=== PATIENT | female | born 1980 | race Caucasian/White ===

== ENCOUNTER 2024-11-09 11:17 | Emergency (ER) | payer OTHER ==
[~2024-11-09] VITALS: Ht 165.1 cm; Wt 73.0 kg
--- NOTE | 2024-11-09 11:31 | ED.PDOC ---
HPI Comments 44 year old female presents to the ED with chief complaint of palpitations. Patient reports that she has been experiencing palpitations with associated dizziness since earlier today. Patient relays that she feels like her heart is pounding and that she needs to catch her breath. Patient states she went to [facility], but was advised to come to the ED for further evaluation. Patient notes that she was recently diagnosed with Influenza B on 10/26/24. Patient denies any chest pain, SOB, headache, numbness, weakness, N/V/D, or abdominal pain. 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 AND 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 History Family History Family History: Reviewed,noncontributory to illness Social History Smoker: Non-Smoker Alcohol: Denies ETOH Use Drugs: Denies Drug Use Lives In: Home Constitutional: denies: chills, diaphoresis, fatigue, fever, malaise, sweats, weakness, others EENTM: denies: blurred vision, double vision, ear bleeding, ear discharge, ear drainage, ear pain, ear ringing, eye pain, eye redness, hearing loss, mouth pain, mouth swelling, nasal discharge, nose bleeding, nose congestion, nose pain, photophobia, tearing, throat pain, throat swelling, voice changes, others Respiratory: denies: cough, hemoptysis, orthopnea, SOB at rest, shortness of breath, SOB with excertion, stridor, wheezing, others Cardiovascular: reports: palpitations; denies: chest pain, dizzy spells, diaphoresis, Dyspnea on exertion, edema, irregular heart beat, left arm pain, lightheadedness, PND, syncope, others Gastrointestinal: denies: abdomen distended, abdominal pain, blood streaked bowels, constipated, diarrhea, dysphagia, difficulty swallowing, hematemesis, melena, nausea, poor appetite, poor fluid intake, rectal bleeding, rectal pain, vomiting, others Genitourinary: denies: abnormal vagina bleeding, burning, dyspareunia, dysuria, flank pain, frequency, hematuria, incontinence, pain, , vagina discharge, urgency, others Neurological: reports: dizziness; denies: fainting, headache, left sided numbness, left sided weakness, numbness, paresthesia, pre-existing deficit, right sided numbness, right sided weakness, seizure, speech problems, tingling, tremors, weakness, others Musculoskeletal: denies: back pain, gout, joint pain, joint swelling, muscle pain, muscle stiffness, neck pain, others Integumetry: denies: bruises, change in color, change in hair/nails, dryness, laceration, lesions, lumps, rash, wounds, others Allergic/Immunocompromised: denies: Difficulty Healing, Frequent Infections, Hives, Itching, others Hematologic/Lymphatic: denies: anemia, blood clots, easy bleeding, easy bruising, swollen glands, others Endocrine: denies: excessive hunger, excessive sweating, excessive thirst, excessive urination, flushing, intolerance to cold, intolerance to heat, unexplained weight gain, unexplained weight loss, others Psychiatric: denies: anxiety, bipolar disorder, depression, hopeless, panic disorder, schizophrenia, sleepless, suicidal, others All Other Systems: Reviewed and Negative Physical Exam General Appearance: Moderate Distress, Normal HEENT: Normal ENT Inspection, PERRL/EOMI Neck: Full Range of Motion, Non-Tender, Normal, Normal Inspection Respiratory: Chest Non-Tender, Lungs Clear, No Accessory Muscle Use, No Respiratory Distress, Normal Breath Sounds Cardiovascular: No Edema, No JVD, No Murmur, No Gallop, Normal Peripheral Pulses, Tachycardia Breast Exam: Deferred Gastrointestinal: No Organomegaly, Non Tender, No Pulsatile Mass, Normal Bowel Sounds, Soft Genitalia: Deferred Pelvic: Deferred Rectal: Deferred Extremities: No calf tenderness, Normal capillary refill, Normal inspection, Normal range of motion, Non-tender, No pedal edema Musculoskeletal : Apperance: Normal Neurologic: Alert, senior assistant 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 Was a procedure done?: No CP Differential Dx Differential Diagnosis: A-fib, A-Flutter, Angina, Anxiety / Panic Attack, Atrial Dysrhythmia, Electrolyte Disorder X-Ray, Labs, Meds, VS Vital Signs Date Time Temp Pulse Resp B/P (MAP) Pulse Ox O2 Delivery O2 Flow Rate FiO2 11/09/24 11:24 104 11/09/24 11:17 98.2 118 24 154/79 (104) 99 Lab Test 11/09/24 11:30 Range/Units White Blood Count 14.7 H 4.4-10.8 10^3/uL Red Blood Count 4.24 4.0-5.20 10^6/uL Hemoglobin 14.0 12.2-16.2 g/dL Hematocrit 40.7 36.0-46.0 % Mean Corpuscular Volume 96.2 80.0-100.0 fL Mean Corpuscular Hemoglobin 33.1 H 28.0-32.0 pg Mean Corpuscular Hemoglobin Concent 34.4 32.0-36.0 g/dL Red Cell Distribution Width 13.5 11.8-14.3 % Platelet Count 478 H 140-450 10^3/uL Mean Platelet Volume 6.6 L 6.9-10.8 fL Neutrophils (%) (Auto) 79.8 37.0-80.0 % Lymphocytes (%) (Auto) 17.5 10.0-50.0 % Monocytes (%) (Auto) 2.6 0.0-12.0 % Eosinophils (%) (Auto) 0.0 0.0-7.0 % Basophils (%) (Auto) 0.1 0.0-2.0 % Neutrophils # (Auto) 11.7 H 1.6-8.6 10 ^3/uL Lymphocytes # (Auto) 2.6 0.4-5.4 10 ^3/uL Monocytes # (Auto) 0.4 0-1.3 10 ^3/uL Eosinophils # (Auto) 0 0-0.8 10 ^3/uL Basophils # (Auto) 0 0-0.2 10 ^3/uL Nucleated Red Blood Cells 0.0 % Sodium Level 135 L 136-145 mmol/L Potassium Level 3.4 L 3.5-5.1 mmol/L Chloride Level 103 98-107 mmol/L Carbon Dioxide Level 18 L 20-31 mmol/L Anion Gap 14 5-15 Blood Urea Nitrogen 10 9-23 mg/dL Creatinine 0.69 0.550-1.02 mg/dL Glomerular Filtration Rate Calc 111 >90 mL/min BUN/Creatinine Ratio 14.5 10.0-20.0 Serum Glucose 151 H 74-106 mg/dL Calcium Level 10.0 8.7-10.4 mg/dL Troponin I High Sensitivity Pending Current Medications Medications (Trade) Dose Ordered Sig/Jenni Route Start Time Stop Time Status Last Admin Lorazepam (Ativan Inj) 1 mg ONCE ONCE IV 11/09/24 11:30 11/09/24 11:31 DC 11/09/24 12:03 Sodium Chloride 1,000 ml @ 1,000 mls/hr Q1H ONCE IV 11/09/24 11:30 11/09/24 12:29 11/09/24 11:45 Aspirin 325 mg ONCE ONCE PO 11/09/24 11:30 11/09/24 11:31 DC 11/09/24 11:45 Patient alert. She is shaking. Heart palpitations. Tachycardia. Was given aspirin. Establish intravenous access. Was given fluids. Was given Ativan. EKG reviewed does not show any acute changes. WBC slightly elevated. Hemoglobin within normal limits. Blood sugar slightly elevated. CT of the head reviewed does not show any acute changes. Spoke with [facility] for transfer. Time of 1ST Reevaluation: 12:29 Reevaluation 1ST: Unchanged Patient Education/Counseling: Diagnosis, Treatment Family Education/Counseling: No Family Present Additional Information I reviewed the following notes from patient's past medical encounters: None The following tests were ordered, and results were reviewed by me: CT Head, CBC, BMP, EKG, UA, Troponin Additional Information was gathered from interviewing the following independent historians: None I reviewed and agreed with the following test results read by other providers: CT Head I discussed treatment and results with medical personnel. Departure 1 Departure Time of Disposition: 12:12 Impression: Primary Impression: Autonomic disorder Disposition: 02 SHORT TERM HOSPITAL Admit to: Med Surg Condition: Guarded Critical Care Note Critical Care Time?: Yes (45 min-critical care time only) Stability Stability form required: No Heart Score Heart Score: Heart Score Response (Comments) Value History Moderate Suspicious 1 EKG Normal 0 Age <45 0 Risk Factors No known risk factors 0 Troponin Normal limit 0 Total 1 I personally scribed for ANTONIETTA COREA MD ([email or web address]) on 11/09/24 at 11:31. Electronically submitted by Pedro Luis Burrell ([email or web address]). ANTONIETTA COREA MD Nov 09, 2024 11:31
[2024-11-09] MEDS: ASPirin 325 MG TAB PO ONE (11:45)
[2024-11-09] MEDS: SODIUM CHLORIDE 0.9% 1,000 ML IV ONE (11:45)
[2024-11-09 11:50] LABS: Basophils # (auto) 0 10 ^3/uL (0-0.2); Eosinophils # (auto) 0 10 ^3/uL (0-0.8); Monocytes # (auto) 0.4 10 ^3/uL (0-1.3)
[2024-11-09 11:52] LABS: Basophils % (auto) 0.1 % (0.0-2.0); Hematocrit 40.7 % (36.0-46.0); Lymphocytes # (auto) 2.6 10 ^3/uL (0.4-5.4); Lymphocytes % (auto) 17.5 % (10.0-50.0); Mean Corpuscular Hemoglobin 33.1 pg (28.0-32.0); Mean Corpuscular Hgb Conc. 34.4 g/dL (32.0-36.0); Mean Corpuscular Volume 96.2 fL (80.0-100.0); Monocytes % (auto) 2.6 % (0.0-12.0); Neutrophils # (auto) 11.7 10 ^3/uL (1.6-8.6); Neutrophils % (auto) 79.8 % (37.0-80.0); Platelet Count (auto) 478 10^3/uL (140-450); Red Blood Cells 4.24 10^6/uL (4.0-5.20); Red Cell Distribution Width 13.5 % (11.8-14.3); White Blood Cell 14.7 10^3/uL (4.4-10.8)
[2024-11-09 11:57] LABS: Chloride 103 mmol/L (98-107)
[2024-11-09 11:58] LABS: Anion Gap 14 (5-15)
[2024-11-09 12:03] LABS: BUN/Creatinine Ratio 14.5 (10.0-20.0); Blood Urea Nitrogen 10 mg/dL (9-23)
[2024-11-09] MEDS: LORazepam 2MG/ML-1ML VIAL IV ONE (12:03)
[2024-11-09 12:09] LABS: Carbon Dioxide 18 mmol/L (20-31); Glucose 151 mg/dL (74-106); Potassium 3.4 mmol/L (3.5-5.1); Sodium 135 mmol/L (136-145)
--- NOTE | 2024-11-09 12:19 | DVH ---
EXAM: CT HEAD WITHOUT CONTRAST INDICATION: dizzy TECHNIQUE: CT of the head without intravenous contrast. Radiation Dose Information: CT Dose: CTDI volume is 51.44 mGy. Dose-length product is 911.09 mGy*cm The dose indicators for CT are the volume Computed Tomography (CT) Dose Index (CTDIvol) and the Dose Length Product (DLP), and are measured in units of mGy and mGy-cm, respectively. These indicators are not patient dose, but values generated from the CT scanner acquisition factors. The report includes radiation exposure data for exposures received during this examination. COMPARISON: None FINDINGS: There is no evidence of acute intracranial hemorrhage, extra-axial collection, mass effect, midline s hift, herniation or hydrocephalus. The ventricles, sulci and cisterns are age appropriate. The cassidy-white differentiation is intact. Patchy periventricular and subcortical white matter hypoattenuation is nonspecific but may be related to small vessel ischemic disease. The visualized paranasal sinuses and mastoid air cells are clear. The surrounding soft tissues and osseous structures are unremarkable. IMPRESSION: No acute intracranial abnormality.
[2024-11-09] MEDS: POTASSIUM EFFERVESENT TAB 25 MEQ PO ONE (12:33)
[2024-11-09] MEDS: diphenhdrAMINE HCL 50 MG/1 ML VL IV ONE (12:33)
[2024-11-09 12:45] VITALS: PULSE 101; RESP 14; O2SAT 100
[2024-11-09 14:25] LABS: Urine Bacteria FEW /hpf (None Seen); Urine Blood Negative /uL (Negative); Urine Clarity Clear (Clear); Urine Color Light-Yellow (Yellow); Urine Mucus FEW (None Seen); Urine Protein, UAD Negative (Negative); Urine Specific Gravity 1.017 (1.001-1.035); Urine Squamous Epithelial Cell FEW /hpf (<5); Urine Urobilinogen Normal (Negative); Urine WBC 4 /HPF (0-5)
[2024-11-09] MEDS: MECLIZINE HCL 25 MG TAB PO ONE (17:18)
[2024-11-09 19:30] VITALS: PULSE 91; RESP 18; O2SAT 97
[2024-11-09 19:58] VITALS: BP 125/60; PULSE 88; RESP 20; TEMP 98; O2SAT 97
--- NOTE | 2024-11-11 09:34 | ECG ---
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
== END 2024-11-09 20:19 | disposition short-term general hospital (02) ==
LOC: EEVIPCON 11:17 → ER 11:17
DX: G90.9 Disorder of the autonomic nervous system, unspecified (principal); Z98.890 Other specified postprocedural states
CPT/HCPCS: 36415; 70450; 80048; 81001; 84443; 84484; 85025; 85379; 96361; 96374; 96375; 99285; J1200; J2060; J7030; J8597; 93005